=== PATIENT | female | born 1965 | race Caucasian/White ===

== ENCOUNTER → 2017-06-05 | Outpatient (CLI) | payer BC ==
--- NOTE | 2017-06-05 16:10 | DIAGNOSTIC IMAGING REPORT ---
SOFT TIS HEAD/NECK-THYROID HISTORY: Abnormal thyroid function tests FREQUENTS STOOLS, WEIGHT LOSS, NERVOUSNESS COMPARISON: None. FINDINGS: Right lobe: Maximum dimension 4.1 cm. Uniform echogenicity Left lobe: 4.2 cm maximum dimension. Uniform echogenicity Isthmus: No nodules. IMPRESSION: Normal thyroid ultrasound. The above report was generated using voice recognition software. It may contain grammatical, syntax or spelling errors. Electronically signed by: Jesse Bailey M.D. 06/05/2017 4:08 PM Dictated Date/Time: 06/05/2017 4:06 PM
== END | disposition home or self-care (01) ==
LOC: C.ULTR 15:34
PROVIDERS: ATTEND Nurse Practitioner Family
DX: R45.0 Nervousness (principal); R63.4 Abnormal weight loss; K52.9 Noninfective gastroenteritis and colitis, unspecified

== ENCOUNTER → 2018-01-26 | Outpatient (CLI) | payer BC ==
--- NOTE | 2018-01-26 09:08 | DIAGNOSTIC IMAGING REPORT ---
ABDOMEN COMPLETE (US) CLINICAL HISTORY: Abdominal distention, nausea and epigastric pain. COMPARISON STUDY: No previous studies for comparison. FINDINGS: Liver is sonographically normal. Immobile stones were noted within the gallbladder fundus. There is no gallbladder wall thickening. No pericholecystic fluid is present. Pancreas is sonographically normal. There is no biliary ductal dilatation. Common bile duct measures 2 mm in caliber. The size of the spleen is normal. The right kidney measures 10.9 cm and the left measures 9.7 cm. There is no hydronephrosis. Renal echogenicity, size and cortical thickness are normal. There is a probable 7 mm cortical calcification within the upper pole of the left kidney. Caliber of the abdominal aorta is normal. Visualized portions of the IVC are patent. IMPRESSION: 1. Gallstones within the gallbladder fundus. No evidence for acute cholecystitis. 2. No biliary ductal dilatation. 3. No hydronephrosis. 4. 7 mm suspected cortical calcification within the left kidney. Electronically signed by: Job Nicholson M.D. 01/26/2018 9:07 AM Dictated Date/Time: 01/26/2018 9:04 AM
== END | disposition home or self-care (01) ==
LOC: C.ULTR 07:33
PROVIDERS: ATTEND Physician Assistant
DX: R14.0 Abdominal distension (gaseous) (principal); R63.0 Anorexia; R11.0 Nausea; R10.13 Epigastric pain; K80.20 Calculus of gallbladder without cholecystitis without obstruction